=== PATIENT | female | born 1995 | race Caucasian/White ===

== ENCOUNTER 2017-07-12 14:52 | Emergency (ER) | payer BC, OTHER ==
[~2017-07-12] VITALS: Ht 167.6 cm; Wt 49.9 kg
[2017-07-12] MEDS ORDERED: SODIUM CHLORIDE 0.9% 1000ML 1,000 ML IV STA (15:19)
[2017-07-12 16:01] LABS: BASOPHILS % 0.3 % (0.0-1.0); EOSINOPHILS % 0.2 % (0.0-6.0); HEMATOCRIT 45.6 % (34.2-44.1); HEMOGLOBIN 16.2 g/dL (12.0-16.0); LYMPHOCYTES # (AUTO) 2.1 (1.0-3.2); MEAN CORPUSCULAR HGB CONC 35.5 g/dL (31-35); MEAN CORPUSCULAR VOLUME 84.4 fL (81-99); MONOCYTES # (AUTO) 0.8 (0.2-0.8); MONOCYTES % 7.3 % (4.4-11.3); NEUTROPHILS # (AUTO) 7.6 (2.1-6.9); NEUTROPHILS % 71.8 % (38.7-80.0); PLATELET COUNT 308 x10e3/uL (140-360); RED CELL DISTRIBUTION WIDTH 12.6 % (11.7-14.4)
[2017-07-12 16:02] LABS: BILIRUBIN,URINE 1+ (NEGATIVE); COLOR,URINE YELLOW (YELLOW); KETONES,URINE NEGATIVE (NEGATIVE); LEUKOCYTE ESTERASE ,URINE TRACE (NEGATIVE); NITRITE,URINE NEGATIVE (NEGATIVE); URINE UROBILINOGEN 1 mg/dL (0.2 - 1)
[2017-07-12 16:05] LABS: PREGNANCY TEST, URINE NEGATIVE (NEGATIVE)
[2017-07-12 16:06] LABS: AMPHETAMINES SCREEN,URINE POSITIVE (NEGATIVE); BENZODIAZEPINES SCREEN,URINE NEGATIVE (NEGATIVE); PHENCYCLIDINE SCREEN,URINE NEGATIVE (NEGATIVE)
[2017-07-12 16:09] LABS: CLARITY,URINE SL CLOUDY (CLEAR); PROTEIN,URINE DIPSTICK TRACE (NEGATIVE)
[2017-07-12 16:17] LABS: ANION GAP 14.2 mmol/L (8-16); BLOOD UREA NITROGEN 9 mg/dL (7-26); BUN/CREATININE RATIO 12 (6-25); CALCIUM 9.9 mg/dL (8.4-10.2); CARBON DIOXIDE 25 mmol/L (22-29); CHLORIDE 105 mmol/L (98-107); CREATININE, SERUM 0.78 mg/dL (0.57-1.11); EST GLOMERULAR FILTRATION RATE > 60 ML/MIN (60-); GLUCOSE 102 mg/dL (74-118); POTASSIUM 4.2 mmol/L (3.5-5.1); SODIUM 140 mmol/L (136-145)
[2017-07-12 16:21] LABS: BACTERIA,URINE MANY /HPF; EPITHELIAL CELLS,URINE FEW /LPF
[2017-07-12 16:39] LABS: THYROID STIMULATING HORMONE 0.469 uIU/mL (0.350-4.940)
--- NOTE | 2017-07-12 17:38 | Diagnostic Imaging Report ---
PROCEDURE:X-RAY ABDOMEN - KUB COMPARISON:None. INDICATIONS:CONSTIPATION, RECTAL BLEEDING FINDINGS: Lung bases: Clear. Organomegaly: None. Bowel: Large amount of stool throughout the colon particularly the sigmoid colon. No large bowel dilatation. No dilated small bowel. No pneumatosis. Free air: None. Calcifications: None. Bones: Trace scoliosis of the lumbar spine could be due to positioning. CONCLUSION: Large amount of stool throughout the colon suggestive of constipation. No bowel obstruction. Dictated by: Jamarcus Mujica M.D. on 07/12/2017 at 17:38 Electronically approved by: Jamarcus Mujica M.D. on 07/12/2017 at 17:38
[2017-07-12 18:23] VITALS: BP 108/59
== END 2017-07-12 18:26 | disposition left against medical advice (07) ==
LOC: ER 14:52
DX: K62.5 Hemorrhage of anus and rectum (principal); K59.00 Constipation, unspecified; F15.129 Other stimulant abuse with intoxication, unspecified; F41.9 Anxiety disorder, unspecified
CPT/HCPCS: 36415; 74018; 80048; 80307; 81001; 81025; 84443; 85025; 93005; 99283; J7030